=== PATIENT | male | born 1945 | race Caucasian/White ===

== ENCOUNTER 2019-01-07 20:46 | Emergency (ER) | payer MEDICARE, BC ==
[2019-01-07 21:13] VITALS: BP 115/79; PULSE 87; RESP 18; TEMP 98.4
--- NOTE | 2019-01-07 22:01 | ED ---
Male Urogenital HPI - General Chief complaint: Urogenital Stated complaint: Blood in urine Time Seen by Provider: 01/07/19 20:55 Source: patient Mode of arrival: EMS Limitations: no limitations - History of Present Illness Initial comments: This patient is 73-year-old man, with history of previous prostate cancer post prostatectomy and radiation treatment, who complains of having urinary retention. He states that yesterday and today he had been having some hematuria and was seen first at [facility], and then here today. Today he had catheter placed and initially had some blood drain and then the urine was running clear. He went home and then states that he had a blockage of the catheter with some blood clots and a feeling that his bladder was full so he presents again. 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 Patient denies other symptoms, including no fever or chills, no chest pain or dyspnea. He reports that he is scheduled to see Dr. Esteban in the morning. MD Complaint: other (Hematuria) Onset/Timin -: days(s) Location: abdomen Radiation: none Severity: moderate Quality: dull, other (Pressure) Consistency: constant Improves with: none Worsens with: none Reports: urinary retention, blood in urine - Related Data Home Medications Medication Instructions Recorded Confirmed Allopurinol [Zyloprim] 100 mg PO DAILY PRN 09/02/15 09/10/15 Colchicine [Colcrys] 0.6 mg PO BID PRN 09/02/15 09/10/15 Etanercept [Enbrel] 50 mg SQ Q7DAYS 09/02/15 09/10/15 Gabapentin [Neurontin] 600 mg PO TID PRN 09/02/15 09/10/15 Linagliptin [Tradjenta] 5 mg PO DAILY 09/02/15 09/10/15 Lisinopril [Zestril] 10 mg PO DAILY 09/02/15 09/10/15 Multivitamin [Men's Multi-Vitamin] 1 each PO DAILY 09/02/15 09/10/15 glipiZIDE [Glucotrol] 10 mg PO AC-BRKFST 09/02/15 09/10/15 metFORMIN HCL [Glucophage] 1,000 mg PO BID 09/02/15 09/10/15 Previous Rx's Medication Instructions Recorded Acetaminophen-Codeine 300-30mg 1 tab PO Q6H PRN #12 tablet 09/12/15 [Tylenol w/codeine #3] Ketorolac [Toradol] 10 mg PO Q6HR #10 tab 09/12/15 Cephalexin [Keflex] 500 mg PO Q12HR 10 Days cap 01/07/19 Allergies Allergy/AdvReac Type Severity Reaction Status Date / Time codeine Allergy Unknown Verified 01/07/19 21:13 gemfibrozil [From Lopid] Allergy Anaphylaxis Verified 01/07/19 21:14 Review of Systems ROS Statement: Those systems with pertinent positive or pertinent negative responses have been documented in the HPI. ROS Other: All systems not noted in ROS Statement are negative. Past Medical History Past Medical History: Cancer, Diabetes Mellitus, GERD/Reflux, Hypertension, Osteoarthritis (OA) Additional Past Medical History / Comment(s): gouty arthritis, hiatal hernia, neuropathy, past hx. benign tremors-not currently, prostate cancer History of Any Multi-Drug Resistant Organisms: None Reported Past Surgical History: Back Surgery, Orthopedic Surgery, Tonsillectomy Additional Past Surgical History / Comment(s): septoplasty, back surg. x 4, left elbow surg., knee arthroscopies, pain procedures prostate Past Anesthesia/Blood Transfusion Reactions: Previous Problems w/ Anesthesia Additional Past Anesthesia/Blood Transfusion Reaction / Comment(s): slow to wake up, adopted-unknown family hx. Past Psychological History: No Psychological Hx Reported Smoking Status: Never smoker Past Alcohol Use History: Rare Past Drug Use History: None Reported - Past Family History Mother Family Medical History: Unable to Obtain General Exam Limitations: no limitations General appearance: alert, in no apparent distress Head exam: Present: atraumatic, normocephalic Eye exam: Present: normal appearance Neck exam: Present: normal inspection Respiratory exam: Present: normal lung sounds bilaterally. Absent: respiratory distress, wheezes, rales, rhonchi, stridor Cardiovascular Exam: Present: regular rate, normal rhythm, normal heart sounds GI/Abdominal exam: Present: soft. Absent: distended, tenderness, guarding, rebound, rigid, mass Rectal exam: Present: other (Lebron catheter present) Extremities exam: Present: normal inspection, normal capillary refill. Absent: pedal edema, calf tenderness Back exam: Present: normal inspection. Absent: CVA tenderness (R), CVA tenderness (L) Skin exam: Present: warm, dry, intact, normal color. Absent: rash Course Vital Signs 01/07/19 20:56 Temperature 98.4 F Pulse Rate 87 Respiratory 18 Rate Blood Pressure 115/79 O2 Sat by Pulse 99 Oximetry Medical Decision Making - Medical Decision Making Patient is a 73-year-old man with hematuria, who had a Lebron catheter placed earlier today. Patient sounds like he had a clot obstructing the outflow earlie r but it seems to have passed. He does have a catheter present that is draining there are some clots in the bag however the urine now is clear and yellow. We did have a bladder scan that showed a volume of 25 mL. He is not having obstructive symptoms now. The patient did argue that he would like to stay in the hospital overnight, and I advised that we may be able to keep him as an observation patient but there is a risk that his insurance will not cover the stay, and he states in the case he wants to go home. He does have established follow-up in the morning with Dr. Fine. The patient was advised that we may be able to change to a larger diameter catheter that would be less likely clot but he is declining to have that at the moment. Disposition Clinical Impression: Hematuria Disposition: HOME SELF-CARE Condition: Good Instructions (If sedation given, give patient instructions): Hematuria (ED) Is patient prescribed a controlled substance at d/c from ED?: No Referrals: Angeles Andre DO [Primary Care Provider] - 1-2 days Cj Fine MD [STAFF PHYSICIAN] - 1-2 days
== END 2019-01-07 23:05 | disposition home or self-care (01) ==
LOC: EC 20:46
DX: R31.9 Hematuria, unspecified (principal); R33.9 Retention of urine, unspecified; E11.9 Type 2 diabetes mellitus without complications; I10 Essential (primary) hypertension; M19.90 Unspecified osteoarthritis, unspecified site; Z85.46 Personal history of malignant neoplasm of prostate; Z88.5 Allergy status to narcotic agent; Z88.8 Allergy status to other drugs, medicaments and biological substances; Z79.84 Long term (current) use of oral hypoglycemic drugs; Z79.899 Other long term (current) drug therapy
CPT/HCPCS: 99284 ×2; 96372; 51702; 51798; 81001; 87086; 87077; 87186; J0696

== ENCOUNTER 2021-05-20 08:28 | Day surgery (SDC) | payer MEDICARE, BC ==
[2021-05-18 14:44] VITALS: BMI 25.0
[~2021-05-20 08:28] MED LIST: CYCLOPENTOLATE 1% OPHTH SOLN 2 ML BTL OP PRN; LACTATED RINGERS 1,000 ML IV SCH; MOXIFLOXACIN HCL 0.5% DROPS 3 ML BTL OP PRN; PHENYLEPHRINE 2.5% OPHTH DRP 2ML OP PRN; TETRACAINE 0.5% OPHTH (PF) DROPS 4 ML BTL OP PRN; TIMOLOL 0.5% OPHTH DROPS 5 ML BTL OP PRN
[2021-05-20 09:45] LABS: Glucose,Whole Blood 153 mg/dL (75-99)
[2021-05-20] MEDS ORDERED: MIDAZOLAM 2 MG/2 ML VIAL ONE (09:54)
[2021-05-20] MEDS ORDERED: fentaNYL (PF) 50 MCG/ML 2 ML AMP ONE (09:54)
[2021-05-20 09:57] VITALS: TEMP 97.4
[2021-05-20] MEDS ORDERED: EPINEPHrine (PF) 0.3 ML in BALANCED SALT IRRIG SOLN COMB2 500 ML IRRIGATION ONE (10:15)
[2021-05-20] MEDS ORDERED: HYALURONATE SODIUM INTRAOCULAR 1 EACH SYRINGE (12MG/ML) INTRAOCULA ONE (10:17)
[2021-05-20] MEDS ORDERED: LIDOCAINE 1% (PF) 10MG/ML VIAL MISCELLANE ONE (10:18)
[2021-05-20] MEDS ORDERED: BALANCED SALT IRRIG SOLN COMB2 15 ML IRRIG.SOLN IRRIGATION ONE (10:18)
[2021-05-20] MEDS ORDERED: TRYPAN BLUE 0.06% SYRINGE 0.5 ML SYRINGE INTRAOCULA ONE (10:18)
--- NOTE | 2021-05-20 10:36 | P.OP ---
Date of Procedure: 05/20/21 Preoperative Diagnosis: NS & CS & PSC POAG mild Postoperative Diagnosis: same Procedure(s) Performed: PIOL, OS & iStent implant Implants: [id number] & iStent W Anesthesia: MAC Surgeon: Shayan Chung Pathology: none sent Condition: stable Disposition: same day Indications for Procedure: blurry vision and better glaucoma control Operative Findings: no complications
[2021-05-20 10:46] LABS: Glucose,Whole Blood 135 mg/dL (75-99)
[2021-05-20 11:36] VITALS: BP 108/70; PULSE 67; RESP 20
--- NOTE | 2021-05-20 19:28 | OP ---
OPERATIVE REPORT DATE OF SURGERY: May 20, 2021 PROCEDURES: Phacoemulsification of cataract and intraocular lens implant of the left eye with eye stent inject placement. PREOPERATIVE DIAGNOSES: Nuclear sclerosis, cortical sclerosis, posterior subcapsular cataract, and primary open- angle glaucoma, left eye, mild stage. POSTOPERATIVE DIAGNOSES: Nuclear sclerosis, cortical sclerosis, posterior subcapsular cataract, and primary open- angle glaucoma, left eye, mild stage. SURGEON: Dr. Shayan Chung. ANESTHESIA: Topical. ESTIMATED BLOOD LOSS: None. SPECIMEN TAKEN: None. NARRATIVE: After obtaining the appropriate consent, the patient was brought to the operating room. There he was placed under cardiac monitoring, prepped and draped in the usual sterile manner. He was approached from his left temporal side and at the 5 o'clock position, an MVR blade was used to create a paracentesis port. Through this opening 1% Xylocaine MPF 50:50 mix of balanced salt solution was injected into the anterior chamber. This was followed by installation of Trypan blue which was left in place for 1 minute. This was irrigated away with balanced salt solution and Viscoat was used to stabilize the anterior chamber. At the 3 o'clock position, a 2.5 mm keratome was used to create a self-sealing corneal flap incision. The patient was then asked to rotate his head approximately 45 degrees away from the operating field to maintain a gaze in the general direction. A small amount of viscoelastic was placed on the patient's cornea followed by a gonio prism. Easy illustration of the trabecular meshwork was identified with Trypan blue and using an eye stent inject, 2 stent devices were placed in the nasal trabecular meshwork approximately 3 hours apart from one another without difficulty. A small amount of blood was identified from both placements. The patient was then returned to the normal supine position and a cystotome was introduced to begin a continuous tear capsulorrhexis which was then completed using the Utrata forceps. Hydrodissection and hydrodelineation of the lens were accomplished with balanced salt solution. Phacoemulsification of the lens utilizing phaco chop was accomplished at 15.24 seconds at 18% power. Additional Xylocaine MPF was instilled in the anterior chamber. This was followed by removal of the remaining cortical debris as well as careful polishing of the posterior capsule in capsule vacuum mode. Provisc was then used to stabilize the capsular bag and a [employer] MX60E 19.5 diopter posterior chamber intraocular lens was then injected into the capsular bag without difficulty. The remaining viscoelastic was then removed from in and around the intraocular lens as well as the anterior chamber. The eye was then brought to normal intraocular pressures through the paracentesis port while ensuring watertight integrity of all incisions. The patient then received 2 drops of 0.5% timolol followed by 2 drops of moxifloxacin. He was then lightly patched and shielded in the usual manner. There were no complications from the procedure. He tolerated the procedure well and was returned to outpatient recovery in good condition. MMODL / IJN: [id number] /
== END 2021-05-20 11:07 | disposition home or self-care (01) ==
LOC: OR 08:28
PROVIDERS: ATTEND Ophthalmology
DX: H25.12 Age-related nuclear cataract, left eye (principal); H40.1121 Primary open-angle glaucoma, left eye, mild stage; I10 Essential (primary) hypertension; E78.5 Hyperlipidemia, unspecified; E11.9 Type 2 diabetes mellitus without complications; M19.90 Unspecified osteoarthritis, unspecified site; M10.9 Gout, unspecified; Z79.899 Other long term (current) drug therapy; Z79.84 Long term (current) use of oral hypoglycemic drugs; Z88.5 Allergy status to narcotic agent
CPT/HCPCS: 0191T; 0376T; 66984

== ENCOUNTER 2021-06-03 08:21 | Day surgery (SDC) | payer MEDICARE, BC ==
[2021-06-01 09:59] VITALS: BMI 25.3
[~2021-06-03 08:21] MED LIST changes: -CYCLOPENTOLATE 1% OPHTH SOLN 2 ML BTL OP PRN; -PHENYLEPHRINE 2.5% OPHTH DRP 2ML OP PRN
[2021-06-03] MEDS: CYCLOPENTOLATE 1% OPHTH SOLN 2 ML BTL OP PRN ×3 (09:08→09:22)
[2021-06-03] MEDS: PHENYLEPHRINE 2.5% OPHTH DRP 2ML OP PRN ×3 (09:11→09:26)
[2021-06-03 09:16] VITALS: TEMP 97.3
[2021-06-03 09:20] LABS: Glucose,Whole Blood 147 mg/dL (75-99)
[2021-06-03] MEDS ORDERED: fentaNYL (PF) 50 MCG/ML 2 ML AMP ONE (09:51)
[2021-06-03] MEDS ORDERED: MIDAZOLAM 2 MG/2 ML VIAL ONE (09:51)
[2021-06-03] MEDS ORDERED: DUOVISC KIT (GREEN BOX) INTRAOCULA ONE (09:54)
[2021-06-03] MEDS ORDERED: TRYPAN BLUE 0.06% SYRINGE 0.5 ML SYRINGE MISCELLANE ONE (09:54)
[2021-06-03] MEDS ORDERED: BALANCED SALT IRRIG SOLN COMB2 15 ML IRRIG.SOLN INTRAOCULA ONE (09:54)
[2021-06-03] MEDS ORDERED: LIDOCAINE 1% (PF) 10MG/ML VIAL SQ ONE (09:55)
[2021-06-03] MEDS ORDERED: EPINEPHrine (PF) 0.3 ML in BALANCED SALT IRRIG SOLN COMB2 500 ML IRRIGATION ONE (10:01)
--- NOTE | 2021-06-03 10:28 | P.OP ---
Date of Procedure: 06/03/21 Preoperative Diagnosis: NS & cs & PSC Postoperative Diagnosis: same Procedure(s) Performed: PIOL, OD Implants: [id number] & iStent Inject Anesthesia: MAC Surgeon: Shayan Chung Pathology: none sent Condition: stable Disposition: same day Indications for Procedure: blurry vision and glaucoma control Operative Findings: no complications
[2021-06-03 10:41] VITALS: RESP 16
[2021-06-03 10:48] LABS: Glucose,Whole Blood 127 mg/dL (75-99)
[2021-06-03 11:15] VITALS: BP 117/77; PULSE 60
--- NOTE | 2021-06-04 09:10 | OP ---
OPERATIVE REPORT DATE OF SURGERY: June 03, 2021 PROCEDURES: Phacoemulsification of cataract and intraocular lens implant of the right eye with eye stent implantation, right eye. PREOPERATIVE DIAGNOSES: Nuclear sclerosis cortical sclerosis and posterior subcapsular cataract with primary open-angle glaucoma, right eye. Mild stage. POSTOPERATIVE DIAGNOSES: Nuclear sclerosis cortical sclerosis and posterior subcapsular cataract with primary open-angle glaucoma, right eye. Mild stage. SURGEON: Dr. Shayan Chung. ANESTHESIA: Topical. ESTIMATED BLOOD LOSS: Less than 5 mL. SPECIMEN TAKEN: None. NARRATIVE: After obtaining the appropriate consent, the patient was brought to the operating room. There he was placed under cardiac monitoring, prepped and draped in the usual sterile manner. He was approached from his right temporal side and at the 11 o'clock position an MVR blade was used to create a paracentesis port. Through this opening, 1% Xylocaine MPF 50:50 mix with balanced salt solution was injected into the anterior chamber. This was followed by an installation of Trypan blue which was left to dwell in the eye for 1 minute. This was irrigated with balance salt solution. The anterior chamber was then stabilized with Viscoat. At the 3 o'clock position, a 2.5 mm keratome was used to create a self-sealing corneal flap incision. The patient was then asked to turn approximately 45 degrees towards his left maintaining a steady gaze in that general direction. A gonioprism was placed on the patient's eye and the stained trabecular meshwork was easily identified. An eye stent inject model [id number] was advanced across the anterior chamber and two small devices were placed within the trabecular meshwork approximately 4-5 clock hours distant from one another in the nasal trabecular meshwork. The patient was then returned to the normal supine position and a cystotome was introduced to begin a continuous tear capsulorrhexis which was then completed using the Utrata forceps. Hydrodissection and hydrodelineation of the lens were accomplished with balanced salt solution. Phacoemulsification of the lens utilizing phaco chop was accomplished in 21.43 seconds at 16% power. Additional Xylocaine MPF was instilled into the anterior chamber. This was followed by careful polishing of the posterior capsule in the capsule vacuum mode as well as removing all remaining cortical material. Additional Provisc was then used to stabilize the capsular bag and a [employer]ausch [employer] Lomb MX 60E 19.0 diopter posterior chamber intraocular lens was then injected into the capsular bag without difficulty. The remaining viscoelastic was removed from in and around the intraocular lens as well as the anterior chamber. The eye was brought to normal intraocular pressure through the paracentesis port with balanced salt solution. All wounds were confirmed watertight. He then received 2 drops of 0.5% timolol followed by 2 drops of 0.5% moxifloxacin, was then lightly patched and shielded in the usual manner. There were no complications from the procedure. He tolerated procedure well, returned to outpatient recovery in good condition. MMKRISTINAL / IJN: [id number] /
== END 2021-06-03 11:20 | disposition home or self-care (01) ==
LOC: OR 08:21
PROVIDERS: ATTEND Ophthalmology
DX: H25.11 Age-related nuclear cataract, right eye (principal); H40.10X1 Unspecified open-angle glaucoma, mild stage; I10 Essential (primary) hypertension; E78.5 Hyperlipidemia, unspecified; E11.9 Type 2 diabetes mellitus without complications; Z85.46 Personal history of malignant neoplasm of prostate; Z79.899 Other long term (current) drug therapy; Z79.84 Long term (current) use of oral hypoglycemic drugs
CPT/HCPCS: 66984; 66183; C1780; C1783; J2250; J0171; J3010; J2001